=== PATIENT | male | born 1965 | race Two or more races ===

== ENCOUNTER 2016-07-02 10:42 | Day surgery (SDC) | payer BC ==
[~2016-07-02] VITALS: Ht 167.6 cm; Wt 69.0 kg
[2016-07-02 12:13] VITALS: Ht 167.6 cm; Wt 69.0 kg
[2016-07-02] MEDS ORDERED: NO MEDS. (12:36)
[2016-07-02 13:03] VITALS: BP 120/65; PULSE 71; RESP 18
[2016-07-02] MEDS ORDERED: MIDAZOLAM 1 MG/ML 2 ML INJ ONE ×4 (14:27→14:28)
[2016-07-02] MEDS ORDERED: FENTAnyl 50 MCG/ML VIAL ONE (14:27)
[2016-07-02 14:50] VITALS: BP 105/75; RESP 20
--- NOTE | 2016-07-02 15:12 | GILP ---
DATE OF PROCEDURE: 07/02/2016 NAME OF PROCEDURES: 1. Esophagogastroduodenoscopy and biopsy. 2. Colonoscopy. SURGEON: Kyle Petit MD PREOPERATIVE DIAGNOSES: 1. Abdominal pain. 2. Chronic heartburn. 3. Screening colonoscopy. POSTOPERATIVE DIAGNOSES: 1. Hiatal hernia. 2. Gastroesophageal reflux disease. 3. Gastritis with erosions. 4. Gastric mucosal biopsies were taken for Helicobacter pylori test. 5. Colonoscopy all the way to the cecum. 6. Internal hemorrhoids. 7. No colon neoplasm was identified. INDICATION FOR THE PROCEDURE: Mr. Aldair Dove is a 50-year-old male patient who had upper abdom inal pain and chronic heartburn, not responding to therapy. The patient also needed screening colon oscopy. The procedures and possible complications are well explained to the patient, he understood and conse nted to the procedure. DESCRIPTION OF PROCEDURE: Under the influence of fentanyl and Versed, the gastroscope was carefully introduced into the esophagus and under direct vision, it was advanced to the stomach and through t he pylorus into the duodenal bulb and descending duodenum. FINDINGS: ESOPHAGUS: The patient had gastroesophageal reflux disease. STOMACH: He had gastritis with erosions. Gastric mucosal biopsies were taken for H. pylori test. DUODENUM: Normal. The colonoscope was carefully introduced in the rectum and under direct vision, it was advanced all the way to the cecum. FINDINGS: The patient had internal hemorrhoids. No colon neoplasm was identified. He tolerated the procedures very well and there was no complication from the procedures. At the end of the procedures, he was awake with stable vital signs and he was discharged home to the care of h is family. IMPRESSION: Please see postoperative diagnoses. PLAN: 1. Omeprazole 40 mg p.o. q.a.m. 2. Await H. pylori test report. Dictated By: KYLE HOGAN/YANG Conf#: [id number] DID#: [id number]
== END 2016-07-03 08:38 | disposition home or self-care (01) ==
LOC: GIL 10:42
PROVIDERS: ATTEND Internal Medicine Gastroenterology
DX: Z12.11 Encounter for screening for malignant neoplasm of colon (principal); K44.9 Diaphragmatic hernia without obstruction or gangrene; K21.9 Gastro-esophageal reflux disease without esophagitis; K29.60 Other gastritis without bleeding; K64.8 Other hemorrhoids
CPT/HCPCS: 43239; 45378; 87081; J2250; J3010; Z7610